=== PATIENT | male | born 1975 | race Caucasian/White ===

== ENCOUNTER 2024-02-27 02:32 | Inpatient (IN) | payer BC, MEDICAID ==
[2024-02-27] VITALS (8 sets, daily range): BP systolic 134–152; BP diastolic 73–88; PULSE 83–119; RESP 16–18; TEMP 97–100.4; O2SAT 94–98
[~2024-02-27] VITALS: Ht 167.6 cm; Wt 64.4 kg
[2024-02-27] MEDS ORDERED: ACETAMIN/CODEINE 120/12MG-5ML 5 ML UDC PO ONE (03:25)
[2024-02-27 03:35] LABS: BASOPHILS % (AUTO) 0.1 % (0.0-2.0); EOSINOPHILS # (AUTO) 0.1 K/uL (0-0.4); EOSINOPHILS % (AUTO) 0.3 % (0.0-4.0); HEMATOCRIT 37.9 % (36-52); HEMOGLOBIN 13.1 g/dL (12.0-18.0); LYMPHOCYTES # (AUTO) 1.6 K/uL (2.0-11.5); LYMPHOCYTES % (AUTO) 8.4 % (20.5-51.1); MEAN CORPUSCULAR HEMOGLOBIN 27 pg (27-31); MEAN CORPUSCULAR HGB CONC 35 g/dL (33-37); MEAN CORPUSCULAR VOLUME 78.5 fL (80-94); MONOCYTES # (AUTO) 0.9 K/uL (0.8-1.0); MONOCYTES % (AUTO) 4.9 % (1.7-9.3); NEUTROPHILS # (AUTO) 16.1 K/uL (1.8-7.7); NEUTROPHILS % (AUTO) 86.3 % (42.2-75.2); PLATELET COUNT (AUTO) 209 K/uL (140-450); RED BLOOD CELL COUNT(AUTO) 4.82 MIL/uL (4.20-6.10); RED CELL DISTRIBUTION WIDTH 13.2 % (11.6-13.7); WHITE BLOOD COUNT (AUTO) 18.6 K/uL (4.8-10.8)
[2024-02-27] MEDS ORDERED: levETIRAcetam 100 MG/ML VIAL IV ONE (03:40)
[2024-02-27 03:51] LABS: ANION GAP 11.9 (8-16); CALCIUM 8.9 mg/dL (8.5-10.1); CARBON DIOXIDE 29.6 mmol/L (21-32); POTASSIUM 3.5 mmol/L (3.5-5.1); TOTAL BILIRUBIN 0.9 mg/dL (0.0-1.0); TOTAL PROTEIN, SERUM 7.1 g/dL (6.4-8.2)
[2024-02-27] MEDS ORDERED: CRUSHER, PILL MC ONE (04:02)
[2024-02-27] MEDS: levETIRAcetam 1,000 MG in NACL 0.9% 100 ML IV ONE (04:03)
[2024-02-27] MEDS: ACETAMINOPHEN EXTRA STRENGTH 500 MG TAB GT ONE (04:16)
[2024-02-27] MEDS: NACL 0.9% 1,000 ML IV ONE ×2 (05:02→07:15)
[2024-02-27 07:00] LABS: BASOPHILS % (AUTO) 0.1 % (0.0-2.0); HEMATOCRIT 32.2 % (36-52); HEMOGLOBIN 11.2 g/dL (12.0-18.0); LYMPHOCYTES % (AUTO) 5.3 % (20.5-51.1); MEAN CORPUSCULAR HEMOGLOBIN 28 pg (27-31); MEAN CORPUSCULAR HGB CONC 35 g/dL (33-37); MEAN CORPUSCULAR VOLUME 78.9 fL (80-94); MONOCYTES # (AUTO) 1.2 K/uL (0.8-1.0); MONOCYTES % (AUTO) 6.3 % (1.7-9.3); NEUTROPHILS # (AUTO) 16.7 K/uL (1.8-7.7); NEUTROPHILS % (AUTO) 88.3 % (42.2-75.2); PLATELET COUNT (AUTO) 183 K/uL (140-450); RED BLOOD CELL COUNT(AUTO) 4.07 MIL/uL (4.20-6.10); WHITE BLOOD COUNT (AUTO) 18.9 K/uL (4.8-10.8)
[2024-02-27] MEDS ORDERED: cefTRIAXone 1,000 MG VIAL ONE (08:19)
[2024-02-27 08:32] LABS: APPEARANCE,URINE CLEAR (CLEAR); BILIRUBIN,URINE NEGATIVE (NEGATIVE); BLOOD, URINE TRACE-I (NEGATIVE); COLOR,URINE YELLOW (YELLOW); LEUKOCYTE ESTERASE ,URINE NEGATIVE (NEGATIVE); NITRITE, URINE NEGATIVE (NEGATIVE); PROTEIN,URINE 3+ (NEGATIVE); UGLUCOSE NEGATIVE (NEGATIVE); UROBILINOGEN,URINE 0.2 EU/dL (0.2 - 1)
[2024-02-27 08:45] LABS: BACTERIA,URINE FEW /HPF (None Seen); SQUAMOUS EPITHELIAL CELL,UR 0-3 (FEW) /LPF (0-3 (FEW)); YEAST,URINE Many /HPF (None Seen)
[2024-02-27] MEDS ORDERED: guaiFENesin DM 200/20 MG-10 ML 10 ML UDC PO PRN (10:05)
[2024-02-27] MEDS ORDERED: HYDROcodone/APAP 7.5/325 MG 1 TAB PO PRN (10:05)
[2024-02-27] MEDS ORDERED: ONDANSETRON 4 MG/2 ML VIAL IM/IVP PRN (10:05)
[2024-02-27] MEDS ORDERED: ZOLPIDEM 5 MG TAB PO PRN (10:05)
[2024-02-27] MEDS ORDERED: DOCUSATE SODIUM 100 MG GELCAP PO PRN (10:05)
[2024-02-27] MEDS ORDERED: LACO50TA PO (10:57)
[2024-02-27] MEDS ORDERED: AMLO10TA88 PO (10:57)
[2024-02-27] MEDS ORDERED: INSU100S22 SUBQ (10:57)
[2024-02-27] MEDS ORDERED: CYCL5TAB2 PO (10:57)
[2024-02-27] MEDS ORDERED: FLUO-402 PO (10:57)
[2024-02-27] MEDS ORDERED: CIPR500T9 PO (10:57)
[2024-02-27] MEDS ORDERED: LISI40TA8 PO (10:57)
[2024-02-27] MEDS ORDERED: QUET25TA46 PO (10:57)
[2024-02-27] MEDS ORDERED: GABA-636 PO (10:57)
[2024-02-27] MEDS ORDERED: INSU100S54 SUBQ (10:57)
[2024-02-27] MEDS ORDERED: [UNRECOGNIZED DRUG - CODE] PO (10:57)
[2024-02-27] MEDS ORDERED: LEVE750T8 PO (10:57)
[2024-02-27 12:50] LABS: LACTIC ACID 2.4 mmol/L (0.4-2.0)
[2024-02-27] MEDS ORDERED: CYCLOBENZAPRINE 10 MG TAB PO SCH (13:25)
[2024-02-27] MEDS ORDERED: DEXTROSE 50% 50 ML SYR IVP PRN (13:30)
[2024-02-27] MEDS ORDERED: NACL 0.9% 500 ML IV SCH (13:30)
[2024-02-27] MEDS: NACL 0.9% 1,000 ML IV SCH (15:05)
[2024-02-27] MEDS: FLUCONAZOLE 100 MG/NS PREMIX 50 ML IV SCH (15:58)
[2024-02-27] MEDS: PIPERACILLIN/TAZOBACTAM 3.375 GM in DEXTROSE 5% 50 ML IV SCH (15:58)
[2024-02-27] MEDS: BLOOD GLUCOSE MONITORING 1 DEV DEV FS SCH (16:20)
[2024-02-27 17:48] LABS: LACTIC ACID 1.4 mmol/L (0.4-2.0)
[2024-02-27] MEDS: levETIRAcetam 500 MG TAB PO SCH (20:09)
[2024-02-27] MEDS: QUEtiapine FUMARATE 25 MG TAB PO SCH (20:11)
[2024-02-27] MEDS: PIPERACILLIN/TAZOBACTAM 3.375 GM VIAL IV ONE ×2 (20:21)
[2024-02-28] VITALS (8 sets, daily range): BP systolic 131–158; BP diastolic 67–87; PULSE 97–117; RESP 18; TEMP 96.6–99.5; O2SAT 93–98
[2024-02-28] MEDS: PIPERACILLIN/TAZOBACTAM 3.375 GM VIAL IV ONE (04:32)
[2024-02-28 06:44] LABS: BASOPHILS % (AUTO) 0.2 % (0.0-2.0); EOSINOPHILS % (AUTO) 0.3 % (0.0-4.0); HEMATOCRIT 34.2 % (36-52); HEMOGLOBIN 11.8 g/dL (12.0-18.0); LYMPHOCYTES # (AUTO) 1.3 K/uL (2.0-11.5); LYMPHOCYTES % (AUTO) 8.8 % (20.5-51.1); MEAN CORPUSCULAR HEMOGLOBIN 27 pg (27-31); MEAN CORPUSCULAR HGB CONC 34 g/dL (33-37); MEAN CORPUSCULAR VOLUME 78.1 fL (80-94); MONOCYTES # (AUTO) 0.9 K/uL (0.8-1.0); MONOCYTES % (AUTO) 6.3 % (1.7-9.3); NEUTROPHILS # (AUTO) 12.6 K/uL (1.8-7.7); NEUTROPHILS % (AUTO) 84.4 % (42.2-75.2); PLATELET COUNT (AUTO) 180 K/uL (140-450); RED BLOOD CELL COUNT(AUTO) 4.39 MIL/uL (4.20-6.10); RED CELL DISTRIBUTION WIDTH 13.1 % (11.6-13.7)
[2024-02-28 07:17] LABS: ALBUMIN 2.6 g/dL (3.4-5.0); CALCIUM 8.8 mg/dL (8.5-10.1); CARBON DIOXIDE 26.4 mmol/L (21-32); CREATININE 0.8 mg/dL (0.6-1.3); POTASSIUM 3.4 mmol/L (3.5-5.1); TOTAL BILIRUBIN 1.1 mg/dL (0.0-1.0); TOTAL PROTEIN, SERUM 6.7 g/dL (6.4-8.2)
[2024-02-28] MEDS: ATORVASTATIN 20 MG TAB PO SCH (08:43)
[2024-02-28] MEDS: GABAPENTIN 300 MG CAP PO SCH (08:44)
[2024-02-28] MEDS: amLODIPine 5 MG TAB PO SCH (08:45)
[2024-02-28] MEDS: PANTOPRAZOLE 40 MG TABEC PO SCH (08:46)
[2024-02-28] MEDS: lisinopriL 20 MG TAB PO SCH (08:46)
[2024-02-28] MEDS: AMANTADINE 100 MG CAP PO SCH (08:46)
[2024-02-28] MEDS: FLUoxetine 20 MG CAP PO SCH (08:50)
[2024-02-28] MEDS ORDERED: QUEtiapine FUMARATE 25 MG TAB PO SCH (09:00)
[2024-02-28] MEDS: POTASSIUM CHLORIDE 10 MEQ TABER PO PRN (12:44)
[2024-02-28] MEDS: ACETAMINOPHEN 325 MG TAB PO PRN (20:23)
[2024-02-29] VITALS (12 sets, daily range): BP systolic 101–149; BP diastolic 48–75; PULSE 57–84; RESP 18–19; TEMP 96.7–98.6; O2SAT 93–100
[2024-02-29 06:47] LABS: BASOPHILS % (AUTO) 0.4 % (0.0-2.0); EOSINOPHILS # (AUTO) 0.1 K/uL (0-0.4); EOSINOPHILS % (AUTO) 1.2 % (0.0-4.0); HEMATOCRIT 31.3 % (36-52); HEMOGLOBIN 10.7 g/dL (12.0-18.0); LYMPHOCYTES # (AUTO) 2.3 K/uL (2.0-11.5); LYMPHOCYTES % (AUTO) 19.6 % (20.5-51.1); MEAN CORPUSCULAR HEMOGLOBIN 27 pg (27-31); MEAN CORPUSCULAR HGB CONC 34 g/dL (33-37); MEAN CORPUSCULAR VOLUME 78.5 fL (80-94); MONOCYTES # (AUTO) 1.3 K/uL (0.8-1.0); NEUTROPHILS # (AUTO) 7.8 K/uL (1.8-7.7); NEUTROPHILS % (AUTO) 67.8 % (42.2-75.2); PLATELET COUNT (AUTO) 182 K/uL (140-450); RED BLOOD CELL COUNT(AUTO) 3.99 MIL/uL (4.20-6.10); RED CELL DISTRIBUTION WIDTH 13.4 % (11.6-13.7); WHITE BLOOD COUNT (AUTO) 11.6 K/uL (4.8-10.8)
[2024-02-29 07:26] LABS: ALBUMIN 2.2 g/dL (3.4-5.0); ANION GAP 10.6 (8-16); CARBON DIOXIDE 29.1 mmol/L (21-32); CREATININE 1.1 mg/dL (0.6-1.3); POTASSIUM 3.7 mmol/L (3.5-5.1); TOTAL BILIRUBIN 1.2 mg/dL (0.0-1.0); TOTAL PROTEIN, SERUM 6.6 g/dL (6.4-8.2)
[2024-02-29] MEDS: INSULIN LISPRO SLIDING SCALE 100 UNITS/ML VIAL SUBQ PRN (11:20)
[2024-02-29] MEDS: MUPIROCIN CA NASAL 2% 1GM TUBE NS SCH (12:29)
[2024-02-29] MEDS: CHLORHEXADINE GLUC 2% CLOTH TP SCH (12:30)
[2024-03-01] VITALS: PULSE 76
[2024-03-01 04:00] VITALS: BP 137/78; PULSE 73; PULSE 77; RESP 18; TEMP 98; O2SAT 97
[2024-03-01 06:40] LABS: BASOPHILS % (AUTO) 0.5 % (0.0-2.0); EOSINOPHILS # (AUTO) 0.1 K/uL (0-0.4); EOSINOPHILS % (AUTO) 1.6 % (0.0-4.0); HEMATOCRIT 30.2 % (36-52); HEMOGLOBIN 10.7 g/dL (12.0-18.0); LYMPHOCYTES # (AUTO) 1.8 K/uL (2.0-11.5); LYMPHOCYTES % (AUTO) 21.5 % (20.5-51.1); MEAN CORPUSCULAR HEMOGLOBIN 27 pg (27-31); MEAN CORPUSCULAR HGB CONC 35 g/dL (33-37); MEAN CORPUSCULAR VOLUME 77.5 fL (80-94); MONOCYTES # (AUTO) 0.8 K/uL (0.8-1.0); MONOCYTES % (AUTO) 8.8 % (1.7-9.3); NEUTROPHILS # (AUTO) 5.8 K/uL (1.8-7.7); NEUTROPHILS % (AUTO) 67.6 % (42.2-75.2); PLATELET COUNT (AUTO) 188 K/uL (140-450); RED CELL DISTRIBUTION WIDTH 12.9 % (11.6-13.7); WHITE BLOOD COUNT (AUTO) 8.6 K/uL (4.8-10.8)
[2024-03-01 07:08] LABS: ANION GAP 14.1 (8-16); CALCIUM 8.7 mg/dL (8.5-10.1); CARBON DIOXIDE 26.5 mmol/L (21-32); POTASSIUM 3.6 mmol/L (3.5-5.1); TOTAL BILIRUBIN 0.6 mg/dL (0.0-1.0); TOTAL PROTEIN, SERUM 6.3 g/dL (6.4-8.2)
[2024-03-01 08:00] VITALS: BP 135/81; PULSE 80; PULSE 93; RESP 18; TEMP 97.1; O2SAT 98
[2024-03-01 16:00] VITALS: BP 135/81; PULSE 93; RESP 18; TEMP 97.1; O2SAT 98
[2024-03-01 20:00] VITALS: BP 128/76; PULSE 77; RESP 18; TEMP 97.7; O2SAT 97
[2024-03-01 20:11] VITALS: PULSE 77; RESP 18; O2SAT 97
[2024-03-02 04:00] VITALS: BP 123/67; PULSE 83; RESP 18; TEMP 97; O2SAT 93
[2024-03-02 07:07] LABS: BASOPHILS % (AUTO) 0.7 % (0.0-2.0); EOSINOPHILS # (AUTO) 0.2 K/uL (0-0.4); EOSINOPHILS % (AUTO) 2.3 % (0.0-4.0); HEMOGLOBIN 10.6 g/dL (12.0-18.0); LYMPHOCYTES # (AUTO) 2.1 K/uL (2.0-11.5); LYMPHOCYTES % (AUTO) 31.3 % (20.5-51.1); MEAN CORPUSCULAR HEMOGLOBIN 27 pg (27-31); MEAN CORPUSCULAR HGB CONC 35 g/dL (33-37); MEAN CORPUSCULAR VOLUME 76.9 fL (80-94); MONOCYTES # (AUTO) 0.5 K/uL (0.8-1.0); MONOCYTES % (AUTO) 8.1 % (1.7-9.3); NEUTROPHILS # (AUTO) 3.9 K/uL (1.8-7.7); NEUTROPHILS % (AUTO) 57.6 % (42.2-75.2); PLATELET COUNT (AUTO) 217 K/uL (140-450); RED BLOOD CELL COUNT(AUTO) 3.91 MIL/uL (4.20-6.10); RED CELL DISTRIBUTION WIDTH 12.9 % (11.6-13.7); WHITE BLOOD COUNT (AUTO) 6.7 K/uL (4.8-10.8)
[2024-03-02 07:40] LABS: ANION GAP 11.6 (8-16); CALCIUM 8.6 mg/dL (8.5-10.1); CARBON DIOXIDE 27.9 mmol/L (21-32); CREATININE 0.9 mg/dL (0.6-1.3); POTASSIUM 3.5 mmol/L (3.5-5.1); TOTAL BILIRUBIN 0.4 mg/dL (0.0-1.0); TOTAL PROTEIN, SERUM 6.6 g/dL (6.4-8.2)
[2024-03-02 08:00] VITALS: PULSE 83; RESP 18; O2SAT 100
[2024-03-02 08:04] VITALS: TEMP 97.8
[2024-03-02 08:35] LABS: ALBUMIN 2.2 g/dL (3.4-5.0)
[2024-03-02 08:58] VITALS: BP 125/62; PULSE 83; RESP 18; TEMP 96.9; O2SAT 100
[2024-03-02] MEDS ORDERED: AMOX-999 PO (10:00)
[2024-03-02] MEDS ORDERED: FLUC200T PO (10:08)
[2024-03-02 10:14] VITALS: BP 125/62; PULSE 83; RESP 18; TEMP 96.9
== END 2024-03-02 11:45 | disposition home or self-care (01) | DRG 871 ==
LOC: MED 02:32 → MTU 10:08
PROVIDERS: ADMIT Student in an Organized Health Care Education/Training Program; ATTEND Student in an Organized Health Care Education/Training Program
DX: A41.9 Sepsis, unspecified organism (principal); J69.0 Pneumonitis due to inhalation of food and vomit; I69.351 Hemiplegia and hemiparesis following cerebral infarction affecting right dominant side; E44.0 Moderate protein-calorie malnutrition; N39.0 Urinary tract infection, site not specified; R65.20 Severe sepsis without septic shock; G40.909 Epilepsy, unspecified, not intractable, without status epilepticus; E11.9 Type 2 diabetes mellitus without complications; F41.9 Anxiety disorder, unspecified; F32.A Depression, unspecified; E78.5 Hyperlipidemia, unspecified; I10 Essential (primary) hypertension; Z68.22 Body mass index [BMI] 22.0-22.9, adult; Z79.4 Long term (current) use of insulin; Z79.899 Other long term (current) drug therapy
CPT/HCPCS: 36415; 70450; 71045; 78580; 80053; 81001; 82948; 83605; 83880; 84484; 85025; 85379; 87040; 87081; 87086; 93005; 96361; 96365; 96367; 97110; 97163-GP; 97530; 99285; A9540; J0696; J1450; J1815; J1953; J2543; J7060; Q0092

== ENCOUNTER 2024-04-01 00:05 | Inpatient (IN) | payer MEDICAID, BC ==
[2024-04-01] VITALS (8 sets, daily range): BP systolic 103–142; BP diastolic 66–88; PULSE 67–85; RESP 14–18; TEMP 97.1–98; O2SAT 98–100
[~2024-04-01] VITALS: Ht 167.6 cm; Wt 81.6 kg
[~2024-04-01 00:05] MED LIST: AMLO10TA88 PO; AMOX-999 PO; CIPR500T9 PO; CYCL5TAB2 PO; FLUC200T PO; FLUO-402 PO; GABA-636 PO; INSU100S22 SUBQ; INSU100S54 SUBQ; LACO50TA PO; LEVE750T8 PO; LISI40TA8 PO; QUET25TA46 PO; [UNRECOGNIZED DRUG - CODE] PO
[2024-04-01 01:31] LABS: BASOPHILS # (AUTO) 0.1 K/uL (0.00-0.22); BASOPHILS % (AUTO) 0.8 % (0.0-2.0); EOSINOPHILS # (AUTO) 0.2 K/uL (0-0.4); EOSINOPHILS % (AUTO) 1.9 % (0.0-4.0); HEMATOCRIT 30.1 % (36-52); HEMOGLOBIN 10.3 g/dL (12.0-18.0); LYMPHOCYTES # (AUTO) 3.1 K/uL (2.0-11.5); LYMPHOCYTES % (AUTO) 26.8 % (20.5-51.1); MEAN CORPUSCULAR HEMOGLOBIN 27 pg (27-31); MEAN CORPUSCULAR HGB CONC 34 g/dL (33-37); MONOCYTES # (AUTO) 0.8 K/uL (0.8-1.0); NEUTROPHILS # (AUTO) 7.3 K/uL (1.8-7.7); NEUTROPHILS % (AUTO) 63.5 % (42.2-75.2); PLATELET COUNT (AUTO) 262 K/uL (140-450); RED BLOOD CELL COUNT(AUTO) 3.76 MIL/uL (4.20-6.10); RED CELL DISTRIBUTION WIDTH 13.6 % (11.6-13.7); WHITE BLOOD COUNT (AUTO) 11.4 K/uL (4.8-10.8)
[2024-04-01 01:42] LABS: APPEARANCE,URINE CLEAR (CLEAR); BILIRUBIN,URINE NEGATIVE (NEGATIVE); BLOOD, URINE TRACE-I (NEGATIVE); COLOR,URINE YELLOW (YELLOW); LEUKOCYTE ESTERASE ,URINE 1+ (NEGATIVE); NITRITE, URINE NEGATIVE (NEGATIVE); PROTEIN,URINE 2+ (NEGATIVE); UGLUCOSE NEGATIVE (NEGATIVE); UROBILINOGEN,URINE 0.2 EU/dL (0.2 - 1)
[2024-04-01 01:54] LABS: BACTERIA,URINE >30 (MANY) /HPF (None Seen); MUCUS,URINE 1+ /LPF (None Seen); SQUAMOUS EPITHELIAL CELL,UR 0-3 (FEW) /LPF (0-3 (FEW))
[2024-04-01 01:55] LABS: AMPHETAMINE, URINE NEGATIVE ng/ml (NEG <=1000); BARBITURATE, URINE NEGATIVE ng/ml (NEG <=200); BENZODIAZEPINE, URINE NEGATIVE ng/mL (NEG <=200); CANNABINOID, URINE NEGATIVE ng/mL (NEG <=50); COCAINE, URINE NEGATIVE ng/mL (NEG <=300); OPIATE, URINE NEGATIVE ng/mL (NEG <=2000); PHENCYCLIDINE SCREEN,URINE NEGATIVE ng/mL (NEG <=25)
[2024-04-01 01:56] LABS: ANION GAP 11.4 (8-16); CALCIUM 8.8 mg/dL (8.5-10.1); CARBON DIOXIDE 26.3 mmol/L (21-32); CREATININE 1.1 mg/dL (0.6-1.3); POTASSIUM 3.7 mmol/L (3.5-5.1)
[2024-04-01 01:59] LABS: ALANINE AMINOTRANSFERASE 24 U/L (12-78); ALBUMIN 2.7 g/dL (3.4-5.0); ALKALINE PHOSPHATASE 90 U/L (50-136); ASPARTATE AMINOTRANSFERASE 18 U/L (15-37); BILIRUBIN,DIRECT 0.2 mg/dL (0.0-0.3); CREATINE KINASE, TOTAL 34 U/L (39-308); THYROID STIMULATING HORMONE 1.76 uIU/mL (0.34-3.74); TOTAL BILIRUBIN 0.8 mg/dL (0.0-1.0); TOTAL PROTEIN, SERUM 6.9 g/dL (6.4-8.2)
[2024-04-01 02:00] LABS: ALCOHOL, BLOOD < 3 mg/dL (<10)
[2024-04-01] MEDS ORDERED: OLAN2.5T1 GT (02:04)
[2024-04-01 02:06] LABS: FLU A ANTIGEN negative (NEGATIVE); FLU B ANTIGEN NEGATIVE (NEGATIVE)
[2024-04-01] MEDS ORDERED: cefTRIAXone 1,000 MG VIAL ONE (02:08)
[2024-04-01] MEDS ORDERED: ONDANSETRON 4 MG/2 ML VIAL IVP PRN (05:05)
[2024-04-01] MEDS ORDERED: MEDICATION REC. PHARMACY CONS. 1 EA MISC MC PRN (05:15)
[2024-04-01] MEDS: NACL 0.9% 1,000 ML IV SCH (05:57)
[2024-04-01] MEDS ORDERED: DEXTROSE 50% 50 ML SYR IVP PRN (06:55)
[2024-04-01] MEDS: BLOOD GLUCOSE MONITORING 1 DEV DEV FS SCH (07:49)
[2024-04-01] MEDS: amLODIPine 5 MG TAB PO SCH (09:00)
[2024-04-01] MEDS: lisinopriL 20 MG TAB PO SCH (09:00)
[2024-04-01] MEDS: QUEtiapine FUMARATE 25 MG TAB PO SCH (09:35)
[2024-04-01] MEDS: levETIRAcetam 500 MG TAB PO SCH (09:35)
[2024-04-01] MEDS: FLUoxetine 20 MG CAP PO SCH (09:35)
[2024-04-01] MEDS: OLANZapine 2.5 MG TAB GT SCH (09:35)
[2024-04-01] MEDS: GABAPENTIN 100 MG CAP PO SCH (09:35)
[2024-04-01] MEDS: AMANTADINE 100 MG CAP PO SCH (09:41)
[2024-04-01] MEDS ORDERED: LACO50TA PO (11:41)
[2024-04-01] MEDS ORDERED: POTASSIUM CHLORIDE 40 MEQ, LIDOCAINE 1% 25 MG in NACL 0.9% 250 ML IV PRN (12:45)
[2024-04-01] MEDS ORDERED: MAG SULF 2000 MG/WATER PREMIX 50 ML IV PRN (12:45)
[2024-04-01] MEDS: LACOSAMIDE 10 MG/1 ML PO SCH (12:47)
[2024-04-01] MEDS ORDERED: VANCOMYCIN PER PHARMACY MC PRN (23:50)
[2024-04-02] MEDS: VANCOMYCIN 1.25GM PREMIX 250 ML IV SCH (01:30)
[2024-04-02] MEDS: VANCOMYCIN 1,000 MG VIAL ONE (01:44)
[2024-04-02] MEDS: VANCOMYCIN 500 MG VIAL ONE (01:45)
[2024-04-02 04:00] VITALS: BP 142/86; PULSE 83; RESP 18; TEMP 97.2; O2SAT 92
[2024-04-02] MEDS: PIPERACILLIN/TAZOBACTAM 3.375 GM VIAL IV ONE (04:20)
[2024-04-02] MEDS: PIPERACILLIN/TAZOBACTAM 3.375 GM in DEXTROSE 5% 50 ML IV SCH (04:32)
[2024-04-02 05:19] LABS: BASOPHILS # (AUTO) 0.1 K/uL (0.00-0.22); BASOPHILS % (AUTO) 0.9 % (0.0-2.0); EOSINOPHILS # (AUTO) 0.3 K/uL (0-0.4); EOSINOPHILS % (AUTO) 3.4 % (0.0-4.0); HEMATOCRIT 32.4 % (36-52); HEMOGLOBIN 11.2 g/dL (12.0-18.0); LYMPHOCYTES # (AUTO) 1.9 K/uL (2.0-11.5); LYMPHOCYTES % (AUTO) 25.5 % (20.5-51.1); MEAN CORPUSCULAR HEMOGLOBIN 27 pg (27-31); MEAN CORPUSCULAR HGB CONC 35 g/dL (33-37); MEAN CORPUSCULAR VOLUME 78.5 fL (80-94); MONOCYTES # (AUTO) 0.5 K/uL (0.8-1.0); MONOCYTES % (AUTO) 6.5 % (1.7-9.3); NEUTROPHILS # (AUTO) 4.8 K/uL (1.8-7.7); NEUTROPHILS % (AUTO) 63.7 % (42.2-75.2); PLATELET COUNT (AUTO) 218 K/uL (140-450); RED BLOOD CELL COUNT(AUTO) 4.13 MIL/uL (4.20-6.10); RED CELL DISTRIBUTION WIDTH 13.6 % (11.6-13.7); WHITE BLOOD COUNT (AUTO) 7.5 K/uL (4.8-10.8)
[2024-04-02 05:23] LABS: ANION GAP 9.7 (8-16); CALCIUM 8.8 mg/dL (8.5-10.1); CARBON DIOXIDE 28.8 mmol/L (21-32); CREATININE 0.7 mg/dL (0.6-1.3); POTASSIUM 3.5 mmol/L (3.5-5.1)
[2024-04-02 05:40] LABS: PHOSPHORUS 3.2 mg/dL (2.5-4.9)
[2024-04-02 08:00] VITALS: BP 127/82; PULSE 81; RESP 18; RESP 19; TEMP 97.3; O2SAT 98
[2024-04-02] MEDS ORDERED: VANCOMYCIN PER PHARMACY MC PRN (08:45)
[2024-04-02] MEDS: VANCOMYCIN 1,000 MG in DEXTROSE 5% 250 ML IV SCH (09:40)
[2024-04-02 16:00] VITALS: BP 145/84; PULSE 78; RESP 18; TEMP 97.2; O2SAT 100
[2024-04-02 20:00] VITALS: BP 125/80; PULSE 78; PULSE 81; RESP 18; RESP 20; TEMP 97.1; O2SAT 97; O2SAT 98
[2024-04-03 04:00] VITALS: BP 144/78; PULSE 75; RESP 20; TEMP 96.5; O2SAT 98
[2024-04-03 08:00] VITALS: BP 151/84; PULSE 74; RESP 18; TEMP 97.9; O2SAT 99
[2024-04-03 08:54] LABS: BASOPHILS # (AUTO) 0.1 K/uL (0.00-0.22); BASOPHILS % (AUTO) 0.8 % (0.0-2.0); EOSINOPHILS # (AUTO) 0.2 K/uL (0-0.4); EOSINOPHILS % (AUTO) 3.1 % (0.0-4.0); HEMATOCRIT 32.3 % (36-52); HEMOGLOBIN 11.3 g/dL (12.0-18.0); LYMPHOCYTES # (AUTO) 1.8 K/uL (2.0-11.5); LYMPHOCYTES % (AUTO) 24.5 % (20.5-51.1); MEAN CORPUSCULAR HEMOGLOBIN 27 pg (27-31); MEAN CORPUSCULAR HGB CONC 35 g/dL (33-37); MONOCYTES # (AUTO) 0.5 K/uL (0.8-1.0); MONOCYTES % (AUTO) 7.4 % (1.7-9.3); NEUTROPHILS # (AUTO) 4.7 K/uL (1.8-7.7); NEUTROPHILS % (AUTO) 64.2 % (42.2-75.2); PLATELET COUNT (AUTO) 217 K/uL (140-450); RED BLOOD CELL COUNT(AUTO) 4.14 MIL/uL (4.20-6.10); RED CELL DISTRIBUTION WIDTH 13.5 % (11.6-13.7); WHITE BLOOD COUNT (AUTO) 7.3 K/uL (4.8-10.8)
[2024-04-03 09:00] LABS: ANION GAP 9.4 (8-16); CALCIUM 8.8 mg/dL (8.5-10.1); CARBON DIOXIDE 29.1 mmol/L (21-32); CREATININE 0.7 mg/dL (0.6-1.3); POTASSIUM 3.5 mmol/L (3.5-5.1)
[2024-04-03 12:00] VITALS: BP 151/84; PULSE 74; RESP 18; TEMP 97.9; O2SAT 99
[2024-04-03 16:00] VITALS: BP 128/70; PULSE 75; RESP 20; TEMP 97.5; O2SAT 98
[2024-04-03 20:00] VITALS: BP 131/78; PULSE 72; PULSE 78; RESP 18; TEMP 97.6; O2SAT 97; O2SAT 99
[2024-04-03] MEDS: VANCOMYCIN 1.25GM PREMIX 250 ML IV SCH (20:58)
[2024-04-03 23:28] LABS: APPEARANCE,URINE CLEAR (CLEAR); BILIRUBIN,URINE NEGATIVE (NEGATIVE); BLOOD, URINE 2+ (NEGATIVE); COLOR,URINE YELLOW (YELLOW); LEUKOCYTE ESTERASE ,URINE NEGATIVE (NEGATIVE); NITRITE, URINE NEGATIVE (NEGATIVE); PH,URINE 6.5 (5.0-9.0); PROTEIN,URINE 2+ (NEGATIVE); UGLUCOSE NEGATIVE (NEGATIVE); UROBILINOGEN,URINE 0.2 EU/dL (0.2 - 1)
[2024-04-03 23:37] LABS: RBC,URINE 20-50 /HPF (0-5); WBC,URINE 0-5 /HPF (0-5)
[2024-04-03 23:38] LABS: BACTERIA,URINE 10-30 (MOD) /HPF (None Seen); MUCUS,URINE 1+ /LPF (None Seen); SQUAMOUS EPITHELIAL CELL,UR 0-3 (FEW) /LPF (0-3 (FEW))
[2024-04-04 04:00] VITALS: BP 139/84; PULSE 78; RESP 18; TEMP 97.2; O2SAT 98
[2024-04-04 05:29] LABS: BASOPHILS # (AUTO) 0.1 K/uL (0.00-0.22); BASOPHILS % (AUTO) 0.7 % (0.0-2.0); EOSINOPHILS # (AUTO) 0.2 K/uL (0-0.4); EOSINOPHILS % (AUTO) 2.1 % (0.0-4.0); HEMATOCRIT 31.5 % (36-52); HEMOGLOBIN 11.2 g/dL (12.0-18.0); LYMPHOCYTES # (AUTO) 1.7 K/uL (2.0-11.5); LYMPHOCYTES % (AUTO) 18.7 % (20.5-51.1); MEAN CORPUSCULAR HEMOGLOBIN 28 pg (27-31); MEAN CORPUSCULAR HGB CONC 35 g/dL (33-37); MEAN CORPUSCULAR VOLUME 77.9 fL (80-94); MONOCYTES # (AUTO) 0.5 K/uL (0.8-1.0); MONOCYTES % (AUTO) 5.4 % (1.7-9.3); NEUTROPHILS # (AUTO) 6.6 K/uL (1.8-7.7); NEUTROPHILS % (AUTO) 73.1 % (42.2-75.2); PLATELET COUNT (AUTO) 218 K/uL (140-450); RED BLOOD CELL COUNT(AUTO) 4.04 MIL/uL (4.20-6.10); RED CELL DISTRIBUTION WIDTH 13.5 % (11.6-13.7); WHITE BLOOD COUNT (AUTO) 9.1 K/uL (4.8-10.8)
[2024-04-04 05:49] LABS: ANION GAP 10.6 (8-16); CALCIUM 8.9 mg/dL (8.5-10.1); CREATININE 0.7 mg/dL (0.6-1.3); POTASSIUM 3.6 mmol/L (3.5-5.1)
[2024-04-04 08:00] VITALS: BP 130/78; PULSE 84; RESP 18; TEMP 97.8; O2SAT 99
[2024-04-04 20:00] VITALS: BP 139/80; PULSE 75; RESP 18; TEMP 97.8; O2SAT 98
[2024-04-05 04:00] VITALS: BP 131/74; PULSE 74; RESP 18; TEMP 98.3; O2SAT 97
[2024-04-05 08:00] VITALS: PULSE 75; RESP 18; TEMP 97.8; O2SAT 99
[2024-04-05 08:37] LABS: ANION GAP 10.2 (8-16); CALCIUM 8.8 mg/dL (8.5-10.1); CARBON DIOXIDE 29.5 mmol/L (21-32); CREATININE 0.7 mg/dL (0.6-1.3); POTASSIUM 3.7 mmol/L (3.5-5.1)
[2024-04-05 11:07] VITALS: PULSE 78; RESP 16; O2SAT 98
[2024-04-05 12:00] VITALS: BP 154/84; PULSE 75; RESP 18; TEMP 97.8; O2SAT 99
[2024-04-05 20:00] VITALS: BP 134/75; PULSE 69; RESP 18; TEMP 97.4; O2SAT 97
[2024-04-06 04:00] VITALS: BP 148/70; PULSE 71; RESP 18; TEMP 97.6; O2SAT 99
[2024-04-06 05:34] LABS: BASOPHILS # (AUTO) 0.1 K/uL (0.00-0.22); BASOPHILS % (AUTO) 0.9 % (0.0-2.0); EOSINOPHILS # (AUTO) 0.2 K/uL (0-0.4); EOSINOPHILS % (AUTO) 2.8 % (0.0-4.0); HEMATOCRIT 31.1 % (36-52); HEMOGLOBIN 10.9 g/dL (12.0-18.0); LYMPHOCYTES # (AUTO) 1.8 K/uL (2.0-11.5); LYMPHOCYTES % (AUTO) 24.4 % (20.5-51.1); MEAN CORPUSCULAR HEMOGLOBIN 27 pg (27-31); MEAN CORPUSCULAR HGB CONC 35 g/dL (33-37); MEAN CORPUSCULAR VOLUME 77.8 fL (80-94); MONOCYTES # (AUTO) 0.5 K/uL (0.8-1.0); MONOCYTES % (AUTO) 6.5 % (1.7-9.3); NEUTROPHILS % (AUTO) 65.4 % (42.2-75.2); PLATELET COUNT (AUTO) 196 K/uL (140-450); RED CELL DISTRIBUTION WIDTH 13.7 % (11.6-13.7); WHITE BLOOD COUNT (AUTO) 7.6 K/uL (4.8-10.8)
[2024-04-06 05:51] LABS: CALCIUM 9.1 mg/dL (8.5-10.1); CARBON DIOXIDE 30.6 mmol/L (21-32); CREATININE 0.7 mg/dL (0.6-1.3); POTASSIUM 3.6 mmol/L (3.5-5.1)
[2024-04-06 08:00] VITALS: PULSE 85; RESP 18; TEMP 98.5; O2SAT 96
[2024-04-06 12:00] VITALS: BP 133/70; PULSE 75; RESP 18; TEMP 98.6; O2SAT 98
[2024-04-06 20:00] VITALS: BP 129/79; PULSE 74; RESP 18; TEMP 97.6; TEMP 98.5; O2SAT 96; O2SAT 99
[2024-04-07 04:00] VITALS: BP 140/81; PULSE 62; RESP 18; TEMP 97.5; O2SAT 98
[2024-04-07 08:00] VITALS: BP_SYST 143; BP_SYST 148; BP_DIAS 80; BP_DIAS 85; PULSE 74; PULSE 80; RESP 18; TEMP 97.4; O2SAT 96; O2SAT 98
[2024-04-07] MEDS ORDERED: VANCOMYCIN PER PHARMACY MC PRN (13:40)
[2024-04-07 16:00] VITALS: BP 148/80; PULSE 72; RESP 18; TEMP 97.7; O2SAT 98
[2024-04-07 20:00] VITALS: BP 139/79; PULSE 74; RESP 18; TEMP 97.3; O2SAT 97
[2024-04-07 21:00] VITALS: PULSE 74; RESP 18; O2SAT 97
[2024-04-08 08:00] VITALS: BP 147/82; PULSE 74; PULSE 78; RESP 16; RESP 18; TEMP 97.4; O2SAT 97; O2SAT 98
[2024-04-08 08:52] LABS: BASOPHILS # (AUTO) 0.1 K/uL (0.00-0.22); BASOPHILS % (AUTO) 0.7 % (0.0-2.0); EOSINOPHILS # (AUTO) 0.1 K/uL (0-0.4); EOSINOPHILS % (AUTO) 1.9 % (0.0-4.0); HEMATOCRIT 32.1 % (36-52); HEMOGLOBIN 11.1 g/dL (12.0-18.0); LYMPHOCYTES # (AUTO) 1.8 K/uL (2.0-11.5); LYMPHOCYTES % (AUTO) 22.8 % (20.5-51.1); MEAN CORPUSCULAR HEMOGLOBIN 27 pg (27-31); MEAN CORPUSCULAR HGB CONC 35 g/dL (33-37); MEAN CORPUSCULAR VOLUME 78.2 fL (80-94); MONOCYTES # (AUTO) 0.6 K/uL (0.8-1.0); MONOCYTES % (AUTO) 7.1 % (1.7-9.3); NEUTROPHILS # (AUTO) 5.2 K/uL (1.8-7.7); NEUTROPHILS % (AUTO) 67.5 % (42.2-75.2); PLATELET COUNT (AUTO) 191 K/uL (140-450); RED BLOOD CELL COUNT(AUTO) 4.11 MIL/uL (4.20-6.10); RED CELL DISTRIBUTION WIDTH 13.3 % (11.6-13.7); WHITE BLOOD COUNT (AUTO) 7.7 K/uL (4.8-10.8)
[2024-04-08 09:22] LABS: ANION GAP 11.2 (8-16); CALCIUM 8.9 mg/dL (8.5-10.1); CARBON DIOXIDE 28.4 mmol/L (21-32); CREATININE 0.6 mg/dL (0.6-1.3); POTASSIUM 3.6 mmol/L (3.5-5.1)
[2024-04-08 16:00] VITALS: BP 139/78; PULSE 68; RESP 16; TEMP 97.5; O2SAT 100
[2024-04-08 21:00] VITALS: PULSE 74; RESP 18; O2SAT 98
[2024-04-09 04:00] VITALS: BP 149/81; PULSE 73; RESP 18; TEMP 97; O2SAT 99
[2024-04-09] MEDS: VANCOMYCIN 1,000 MG in DEXTROSE 5% 250 ML IV SCH (05:33)
[2024-04-09 06:58] LABS: BASOPHILS # (AUTO) 0.1 K/uL (0.00-0.22); BASOPHILS % (AUTO) 0.8 % (0.0-2.0); EOSINOPHILS # (AUTO) 0.2 K/uL (0-0.4); EOSINOPHILS % (AUTO) 2.1 % (0.0-4.0); HEMATOCRIT 31.1 % (36-52); LYMPHOCYTES # (AUTO) 1.7 K/uL (2.0-11.5); LYMPHOCYTES % (AUTO) 21.9 % (20.5-51.1); MEAN CORPUSCULAR HEMOGLOBIN 28 pg (27-31); MEAN CORPUSCULAR HGB CONC 35 g/dL (33-37); MEAN CORPUSCULAR VOLUME 77.6 fL (80-94); MONOCYTES # (AUTO) 0.5 K/uL (0.8-1.0); MONOCYTES % (AUTO) 6.3 % (1.7-9.3); NEUTROPHILS # (AUTO) 5.2 K/uL (1.8-7.7); NEUTROPHILS % (AUTO) 68.9 % (42.2-75.2); PLATELET COUNT (AUTO) 184 K/uL (140-450); RED CELL DISTRIBUTION WIDTH 13.5 % (11.6-13.7); WHITE BLOOD COUNT (AUTO) 7.6 K/uL (4.8-10.8)
[2024-04-09 07:20] LABS: ANION GAP 12.6 (8-16); CALCIUM 8.6 mg/dL (8.5-10.1); CARBON DIOXIDE 26.9 mmol/L (21-32); CREATININE 0.6 mg/dL (0.6-1.3); POTASSIUM 3.5 mmol/L (3.5-5.1)
[2024-04-09 08:00] VITALS: BP 154/84; PULSE 80; RESP 18; TEMP 97.8; O2SAT 99
[2024-04-09 16:00] VITALS: BP 116/72; PULSE 72; RESP 18; TEMP 98; O2SAT 97
[2024-04-09 20:00] VITALS: RESP 18; TEMP 97.3; O2SAT 96
[2024-04-09] MEDS: INSULIN LISPRO SLIDING SCALE 100 UNITS/ML VIAL SUBQ PRN (20:33)
[2024-04-10] VITALS: BP 134/74; PULSE 76; RESP 18; TEMP 97.3; O2SAT 98
[2024-04-10 06:38] LABS: BASOPHILS # (AUTO) 0.1 K/uL (0.00-0.22); BASOPHILS % (AUTO) 0.7 % (0.0-2.0); EOSINOPHILS # (AUTO) 0.1 K/uL (0-0.4); EOSINOPHILS % (AUTO) 1.5 % (0.0-4.0); HEMATOCRIT 32.8 % (36-52); HEMOGLOBIN 11.5 g/dL (12.0-18.0); LYMPHOCYTES # (AUTO) 1.7 K/uL (2.0-11.5); LYMPHOCYTES % (AUTO) 18.7 % (20.5-51.1); MEAN CORPUSCULAR HEMOGLOBIN 27 pg (27-31); MEAN CORPUSCULAR HGB CONC 35 g/dL (33-37); MEAN CORPUSCULAR VOLUME 77.7 fL (80-94); MONOCYTES # (AUTO) 0.6 K/uL (0.8-1.0); MONOCYTES % (AUTO) 6.9 % (1.7-9.3); NEUTROPHILS # (AUTO) 6.6 K/uL (1.8-7.7); NEUTROPHILS % (AUTO) 72.2 % (42.2-75.2); PLATELET COUNT (AUTO) 181 K/uL (140-450); RED BLOOD CELL COUNT(AUTO) 4.22 MIL/uL (4.20-6.10); RED CELL DISTRIBUTION WIDTH 13.6 % (11.6-13.7); WHITE BLOOD COUNT (AUTO) 9.1 K/uL (4.8-10.8)
[2024-04-10 07:04] LABS: ANION GAP 11.1 (8-16); CALCIUM 8.8 mg/dL (8.5-10.1); CARBON DIOXIDE 29.6 mmol/L (21-32); CREATININE 0.8 mg/dL (0.6-1.3); POTASSIUM 3.7 mmol/L (3.5-5.1)
[2024-04-10 08:00] VITALS: BP 156/83; PULSE 81; RESP 18; TEMP 97.9; O2SAT 98
[2024-04-10 16:00] VITALS: BP 134/82; PULSE 80; RESP 18; TEMP 98; O2SAT 98
[2024-04-10 20:00] VITALS: BP 152/82; PULSE 76; RESP 18; TEMP 97.4; O2SAT 98; O2SAT 99
[2024-04-11 07:16] LABS: ANION GAP 9.6 (8-16); CALCIUM 8.6 mg/dL (8.5-10.1); CARBON DIOXIDE 30.9 mmol/L (21-32); CREATININE 0.7 mg/dL (0.6-1.3); POTASSIUM 3.5 mmol/L (3.5-5.1)
[2024-04-11 07:32] LABS: BASOPHILS # (AUTO) 0.1 K/uL (0.00-0.22); BASOPHILS % (AUTO) 0.8 % (0.0-2.0); EOSINOPHILS # (AUTO) 0.2 K/uL (0-0.4); EOSINOPHILS % (AUTO) 2.6 % (0.0-4.0); HEMATOCRIT 30.3 % (36-52); HEMOGLOBIN 10.7 g/dL (12.0-18.0); LYMPHOCYTES # (AUTO) 1.8 K/uL (2.0-11.5); MEAN CORPUSCULAR HEMOGLOBIN 28 pg (27-31); MEAN CORPUSCULAR HGB CONC 35 g/dL (33-37); MEAN CORPUSCULAR VOLUME 77.6 fL (80-94); MONOCYTES # (AUTO) 0.6 K/uL (0.8-1.0); MONOCYTES % (AUTO) 6.9 % (1.7-9.3); NEUTROPHILS # (AUTO) 5.6 K/uL (1.8-7.7); NEUTROPHILS % (AUTO) 67.7 % (42.2-75.2); PLATELET COUNT (AUTO) 164 K/uL (140-450); RED BLOOD CELL COUNT(AUTO) 3.91 MIL/uL (4.20-6.10); RED CELL DISTRIBUTION WIDTH 13.7 % (11.6-13.7); WHITE BLOOD COUNT (AUTO) 8.3 K/uL (4.8-10.8)
[2024-04-11 08:00] VITALS: BP 149/81; PULSE 79; RESP 18; TEMP 98.1; O2SAT 99
[2024-04-11 16:00] VITALS: BP 143/80; PULSE 77; RESP 18; TEMP 97.9; O2SAT 99
[2024-04-11 20:00] VITALS: BP 139/79; PULSE 74; RESP 18; TEMP 97.2; O2SAT 100
[2024-04-11 22:29] VITALS: PULSE 74; RESP 18; O2SAT 100; O2SAT 99
[2024-04-11 23:32] VITALS: TEMP 97.2
[2024-04-12] MEDS: CYCLOBENZAPRINE 10 MG TAB PO PRN (02:06)
[2024-04-12] MEDS: CRUSHER, PILL MC ONE (02:08)
[2024-04-12 04:00] VITALS: BP 151/89; PULSE 84; RESP 17; TEMP 97.9; O2SAT 99
[2024-04-12 07:22] LABS: BASOPHILS % (AUTO) 0.6 % (0.0-2.0); EOSINOPHILS # (AUTO) 0.2 K/uL (0-0.4); EOSINOPHILS % (AUTO) 2.2 % (0.0-4.0); HEMATOCRIT 31.7 % (36-52); HEMOGLOBIN 11.1 g/dL (12.0-18.0); LYMPHOCYTES # (AUTO) 1.7 K/uL (2.0-11.5); LYMPHOCYTES % (AUTO) 21.7 % (20.5-51.1); MEAN CORPUSCULAR HEMOGLOBIN 27 pg (27-31); MEAN CORPUSCULAR HGB CONC 35 g/dL (33-37); MEAN CORPUSCULAR VOLUME 77.5 fL (80-94); MONOCYTES # (AUTO) 0.6 K/uL (0.8-1.0); MONOCYTES % (AUTO) 7.4 % (1.7-9.3); NEUTROPHILS # (AUTO) 5.3 K/uL (1.8-7.7); NEUTROPHILS % (AUTO) 68.1 % (42.2-75.2); PLATELET COUNT (AUTO) 172 K/uL (140-450); RED BLOOD CELL COUNT(AUTO) 4.09 MIL/uL (4.20-6.10); RED CELL DISTRIBUTION WIDTH 13.8 % (11.6-13.7); WHITE BLOOD COUNT (AUTO) 7.8 K/uL (4.8-10.8)
[2024-04-12 07:36] LABS: ANION GAP 10.5 (8-16); CALCIUM 8.8 mg/dL (8.5-10.1); CREATININE 0.8 mg/dL (0.6-1.3); POTASSIUM 3.5 mmol/L (3.5-5.1)
[2024-04-12 16:00] VITALS: BP 142/84; PULSE 80; TEMP 97.8
[2024-04-12 20:00] VITALS: BP 144/84; PULSE 70; PULSE 80; RESP 18; TEMP 97; O2SAT 99
[2024-04-13] MEDS: HYDRAGUARD CREAM TP ONE (01:00)
[2024-04-13 04:00] VITALS: BP 147/83; PULSE 78; RESP 19; TEMP 97.5; O2SAT 98
[2024-04-13 06:45] LABS: BASOPHILS # (AUTO) 0.1 K/uL (0.00-0.22); BASOPHILS % (AUTO) 0.8 % (0.0-2.0); EOSINOPHILS # (AUTO) 0.2 K/uL (0-0.4); EOSINOPHILS % (AUTO) 2.2 % (0.0-4.0); HEMATOCRIT 31.3 % (36-52); LYMPHOCYTES # (AUTO) 1.4 K/uL (2.0-11.5); LYMPHOCYTES % (AUTO) 19.8 % (20.5-51.1); MEAN CORPUSCULAR HEMOGLOBIN 27 pg (27-31); MEAN CORPUSCULAR HGB CONC 35 g/dL (33-37); MONOCYTES # (AUTO) 0.6 K/uL (0.8-1.0); MONOCYTES % (AUTO) 8.2 % (1.7-9.3); NEUTROPHILS # (AUTO) 4.9 K/uL (1.8-7.7); PLATELET COUNT (AUTO) 186 K/uL (140-450); RED BLOOD CELL COUNT(AUTO) 4.02 MIL/uL (4.20-6.10); RED CELL DISTRIBUTION WIDTH 13.9 % (11.6-13.7)
[2024-04-13 07:10] LABS: ALBUMIN 2.7 g/dL (3.4-5.0); CALCIUM 8.7 mg/dL (8.5-10.1); CARBON DIOXIDE 30.5 mmol/L (21-32); CREATININE 0.8 mg/dL (0.6-1.3); PHOSPHORUS 4.1 mg/dL (2.5-4.9); POTASSIUM 3.5 mmol/L (3.5-5.1); TOTAL BILIRUBIN 0.6 mg/dL (0.0-1.0); TOTAL PROTEIN, SERUM 6.7 g/dL (6.4-8.2)
[2024-04-13 08:00] VITALS: PULSE 78; RESP 18; TEMP 97.5; O2SAT 98
[2024-04-13 16:00] VITALS: BP 141/88; PULSE 82; RESP 18; TEMP 98.3; O2SAT 98
[2024-04-13 20:00] VITALS: BP 139/83; PULSE 74; RESP 18; RESP 19; TEMP 97.1; O2SAT 98
[2024-04-13] MEDS: LOSARTAN 50 MG TAB PO SCH (21:58)
[2024-04-14] MEDS: HYDRAGUARD CREAM TP PRN (05:05)
[2024-04-14 06:33] LABS: BASOPHILS # (AUTO) 0.1 K/uL (0.00-0.22); BASOPHILS % (AUTO) 1.1 % (0.0-2.0); EOSINOPHILS # (AUTO) 0.2 K/uL (0-0.4); EOSINOPHILS % (AUTO) 2.5 % (0.0-4.0); HEMATOCRIT 31.2 % (36-52); HEMOGLOBIN 10.9 g/dL (12.0-18.0); LYMPHOCYTES # (AUTO) 1.2 K/uL (2.0-11.5); LYMPHOCYTES % (AUTO) 19.9 % (20.5-51.1); MEAN CORPUSCULAR HEMOGLOBIN 27 pg (27-31); MEAN CORPUSCULAR HGB CONC 35 g/dL (33-37); MEAN CORPUSCULAR VOLUME 77.7 fL (80-94); MONOCYTES # (AUTO) 0.6 K/uL (0.8-1.0); NEUTROPHILS % (AUTO) 66.5 % (42.2-75.2); PLATELET COUNT (AUTO) 174 K/uL (140-450); RED BLOOD CELL COUNT(AUTO) 4.01 MIL/uL (4.20-6.10); RED CELL DISTRIBUTION WIDTH 13.9 % (11.6-13.7); WHITE BLOOD COUNT (AUTO) 6.1 K/uL (4.8-10.8)
[2024-04-14 06:58] LABS: ALBUMIN 2.7 g/dL (3.4-5.0); ANION GAP 9.7 (8-16); CALCIUM 8.5 mg/dL (8.5-10.1); CREATININE 0.8 mg/dL (0.6-1.3); PHOSPHORUS 4.3 mg/dL (2.5-4.9); POTASSIUM 3.7 mmol/L (3.5-5.1); TOTAL BILIRUBIN 0.6 mg/dL (0.0-1.0); TOTAL PROTEIN, SERUM 6.7 g/dL (6.4-8.2)
[2024-04-14 08:00] VITALS: BP 156/83; PULSE 74; PULSE 85; RESP 18; TEMP 98.5; O2SAT 97; O2SAT 99
[2024-04-14] MEDS ORDERED: LOSA-270 PO (08:09)
[2024-04-14] MEDS: hydroCHLOROthiazide 25 MG TAB PO SCH (09:41)
[2024-04-14] MEDS ORDERED: HYDR25TA32 PO (11:40)
[2024-04-14 16:00] VITALS: BP 137/80; PULSE 73; RESP 18; TEMP 97.6; O2SAT 100
[2024-04-14 20:00] VITALS: BP 141/83; PULSE 84; PULSE 87; RESP 18; TEMP 97.5; O2SAT 97
[2024-04-15 06:48] LABS: BASOPHILS % (AUTO) 0.8 % (0.0-2.0); EOSINOPHILS # (AUTO) 0.1 K/uL (0-0.4); EOSINOPHILS % (AUTO) 1.8 % (0.0-4.0); HEMATOCRIT 30.1 % (36-52); HEMOGLOBIN 10.6 g/dL (12.0-18.0); LYMPHOCYTES # (AUTO) 1.4 K/uL (2.0-11.5); LYMPHOCYTES % (AUTO) 21.9 % (20.5-51.1); MEAN CORPUSCULAR HEMOGLOBIN 27 pg (27-31); MEAN CORPUSCULAR HGB CONC 35 g/dL (33-37); MONOCYTES # (AUTO) 0.5 K/uL (0.8-1.0); MONOCYTES % (AUTO) 8.3 % (1.7-9.3); NEUTROPHILS # (AUTO) 4.3 K/uL (1.8-7.7); NEUTROPHILS % (AUTO) 67.2 % (42.2-75.2); PLATELET COUNT (AUTO) 182 K/uL (140-450); RED BLOOD CELL COUNT(AUTO) 3.86 MIL/uL (4.20-6.10); RED CELL DISTRIBUTION WIDTH 13.9 % (11.6-13.7); WHITE BLOOD COUNT (AUTO) 6.5 K/uL (4.8-10.8)
[2024-04-15 07:06] LABS: ALBUMIN 2.8 g/dL (3.4-5.0); ANION GAP 8.2 (8-16); CALCIUM 8.8 mg/dL (8.5-10.1); CARBON DIOXIDE 32.2 mmol/L (21-32); CREATININE 0.9 mg/dL (0.6-1.3); MAGNESIUM 2.1 mg/dL (1.8-2.4); PHOSPHORUS 4.4 mg/dL (2.5-4.9); POTASSIUM 3.4 mmol/L (3.5-5.1); TOTAL BILIRUBIN 0.7 mg/dL (0.0-1.0)
[2024-04-15 08:00] VITALS: BP 157/86; PULSE 84; RESP 18; TEMP 98.3; O2SAT 97; O2SAT 98
[2024-04-15] MEDS: POTASSIUM CHLORIDE 20% 40 MEQ/15 ML UDC GT SCH (12:10)
[2024-04-15] MEDS: CRUSHER, PILL MC ONE (14:15)
[2024-04-15 16:00] VITALS: BP 136/78; PULSE 77; RESP 18; TEMP 97.8; O2SAT 99
== END 2024-04-15 19:50 | disposition home or self-care (01) | DRG 52 ==
LOC: MED 00:05 → MMU 05:10 → MTU 05:18
PROVIDERS: ADMIT Student in an Organized Health Care Education/Training Program; ATTEND Student in an Organized Health Care Education/Training Program
DX: G93.41 Metabolic encephalopathy (principal); E43 Unspecified severe protein-calorie malnutrition; I69.351 Hemiplegia and hemiparesis following cerebral infarction affecting right dominant side; D64.9 Anemia, unspecified; B95.62 Methicillin resistant Staphylococcus aureus infection as the cause of diseases classified elsewhere; E11.9 Type 2 diabetes mellitus without complications; N10 Acute pyelonephritis; E78.5 Hyperlipidemia, unspecified; Z20.822 Contact with and (suspected) exposure to COVID-19; G40.909 Epilepsy, unspecified, not intractable, without status epilepticus; I10 Essential (primary) hypertension; Z93.1 Gastrostomy status; Z68.29 Body mass index [BMI] 29.0-29.9, adult
CPT/HCPCS: 36415; 70450; 71045; 80048; 80053; 80076; 80202; 80305; 81001; 82140; 82272; 82550; 82948; 83605; 83735; 84100; 84443; 84484; 85025; 87040; 87081; 87086; 87186; 93005; 96365; 97110; 97112; 97163-GP; 97530; 99285; G0482; J0696; J1815; J2543; J3370; J3372; J7060; Q0092

== ENCOUNTER 2024-05-01 15:55 | Inpatient (IN) | payer OTHER, MEDICAID ==
[~2024-05-01] VITALS: Ht 167.6 cm; Wt 68.0 kg
[~2024-05-01 15:55] MED LIST changes: -AMOX-999 PO; -CIPR500T9 PO; -FLUC200T PO; +HYDR25TA32 PO; -LISI40TA8 PO; +LOSA-270 PO; +OLAN2.5T1 GT
[2024-05-01 15:59] VITALS: BP 118/75; PULSE 90; RESP 20; TEMP 98.5; O2SAT 97
[2024-05-01 16:19] LABS: BASOPHILS # (AUTO) 0.1 K/uL (0.00-0.22); BASOPHILS % (AUTO) 0.7 % (0.0-2.0); EOSINOPHILS # (AUTO) 0.1 K/uL (0-0.4); EOSINOPHILS % (AUTO) 1.6 % (0.0-4.0); HEMATOCRIT 31.1 % (36-52); HEMOGLOBIN 10.6 g/dL (12.0-18.0); LYMPHOCYTES # (AUTO) 2.4 K/uL (2.0-11.5); LYMPHOCYTES % (AUTO) 28.4 % (20.5-51.1); MEAN CORPUSCULAR HEMOGLOBIN 27 pg (27-31); MEAN CORPUSCULAR HGB CONC 34 g/dL (33-37); MEAN CORPUSCULAR VOLUME 78.1 fL (80-94); MONOCYTES # (AUTO) 0.7 K/uL (0.8-1.0); MONOCYTES % (AUTO) 8.4 % (1.7-9.3); NEUTROPHILS # (AUTO) 5.2 K/uL (1.8-7.7); NEUTROPHILS % (AUTO) 60.9 % (42.2-75.2); PLATELET COUNT (AUTO) 215 K/uL (140-450); RED BLOOD CELL COUNT(AUTO) 3.98 MIL/uL (4.20-6.10); RED CELL DISTRIBUTION WIDTH 13.4 % (11.6-13.7); WHITE BLOOD COUNT (AUTO) 8.5 K/uL (4.8-10.8)
[2024-05-01 16:23] LABS: BILIRUBIN,URINE NEGATIVE (NEGATIVE); BLOOD, URINE 1+ (NEGATIVE); COLOR,URINE YELLOW (YELLOW); LEUKOCYTE ESTERASE ,URINE 3+ (NEGATIVE); NITRITE, URINE NEGATIVE (NEGATIVE); PROTEIN,URINE 2+ (NEGATIVE); UGLUCOSE NEGATIVE (NEGATIVE)
[2024-05-01 16:37] LABS: APPEARANCE,URINE HAZY (CLEAR)
[2024-05-01 16:38] LABS: ANION GAP 10.2 (8-16); CALCIUM 8.9 mg/dL (8.5-10.1); CARBON DIOXIDE 31.6 mmol/L (21-32); CREATININE 0.9 mg/dL (0.6-1.3); POTASSIUM 3.8 mmol/L (3.5-5.1)
[2024-05-01 16:38] LABS: BACTERIA,URINE 4+ /HPF (None Seen); MUCUS,URINE 2+ /LPF (None Seen); SQUAMOUS EPITHELIAL CELL,UR 4-10 (MOD) /LPF (0-3 (FEW)); WBC,URINE >25 (MANY) /HPF (0-5); YEAST,URINE Moderate /HPF (None Seen)
[2024-05-01] MEDS ORDERED: cefTRIAXone 1,000 MG VIAL ONE (16:43)
[2024-05-01 16:47] LABS: LACTIC ACID 0.5 mmol/L (0.4-2.0)
[2024-05-01] MEDS: cefTRIAXone 1,000 MG in DEXT 5% MINI-BAG PLUS 50 ML IV ONE (16:48)
[2024-05-01] MEDS: NACL 0.9% 1,000 ML IV SCH (16:48)
[2024-05-01 16:53] LABS: FLU A ANTIGEN negative (NEGATIVE); FLU B ANTIGEN NEGATIVE (NEGATIVE)
[2024-05-01] MEDS ORDERED: MAG SULF 2000 MG/WATER PREMIX 50 ML IV PRN (17:50)
[2024-05-01] MEDS ORDERED: KCL 20 MEQ IN 100 mL PREMIX 200 ML IV PRN (17:50)
[2024-05-01] MEDS ORDERED: METOCLOPRAMIDE 10 MG/2 ML INJ VIAL IVP PRN (17:50)
[2024-05-01] MEDS ORDERED: DEXTROSE 50% 50 ML SYR IVP PRN (17:55)
[2024-05-01] MEDS ORDERED: INSULIN LISPRO SLIDING SCALE 100 UNITS/ML VIAL SUBQ PRN (17:55)
[2024-05-01 19:00] VITALS: RESP 20; O2SAT 100
[2024-05-01] MEDS: LOSARTAN 50 MG TAB PO SCH (21:46)
[2024-05-01] MEDS: OLANZapine 2.5 MG TAB GT SCH (21:46)
[2024-05-01] MEDS: levETIRAcetam 500 MG TAB PO SCH (21:47)
[2024-05-01] MEDS: BLOOD GLUCOSE MONITORING 1 DEV DEV FS SCH (21:56)
[2024-05-02] MEDS: DEXT 5% /NACL 0.9% 1,000 ML IV SCH (00:17)
[2024-05-02 04:00] VITALS: BP 122/73; PULSE 83; RESP 20; TEMP 97.1; O2SAT 83
[2024-05-02 06:54] LABS: BASOPHILS % (AUTO) 0.8 % (0.0-2.0); EOSINOPHILS # (AUTO) 0.1 K/uL (0-0.4); HEMOGLOBIN 10.3 g/dL (12.0-18.0); LYMPHOCYTES # (AUTO) 1.4 K/uL (2.0-11.5); MEAN CORPUSCULAR HEMOGLOBIN 27 pg (27-31); MEAN CORPUSCULAR HGB CONC 34 g/dL (33-37); MEAN CORPUSCULAR VOLUME 78.2 fL (80-94); MONOCYTES # (AUTO) 0.5 K/uL (0.8-1.0); MONOCYTES % (AUTO) 7.5 % (1.7-9.3); NEUTROPHILS # (AUTO) 3.9 K/uL (1.8-7.7); NEUTROPHILS % (AUTO) 65.7 % (42.2-75.2); PLATELET COUNT (AUTO) 179 K/uL (140-450); RED BLOOD CELL COUNT(AUTO) 3.84 MIL/uL (4.20-6.10); RED CELL DISTRIBUTION WIDTH 13.1 % (11.6-13.7)
[2024-05-02 07:24] LABS: ALBUMIN 2.7 g/dL (3.4-5.0); ANION GAP 10.8 (8-16); CALCIUM 8.6 mg/dL (8.5-10.1); CARBON DIOXIDE 27.8 mmol/L (21-32); CREATININE 0.8 mg/dL (0.6-1.3); POTASSIUM 3.6 mmol/L (3.5-5.1); TOTAL BILIRUBIN 0.5 mg/dL (0.0-1.0); TOTAL PROTEIN, SERUM 6.9 g/dL (6.4-8.2)
[2024-05-02 08:00] VITALS: BP 136/94; PULSE 78; RESP 18; TEMP 97.2; O2SAT 98
[2024-05-02] MEDS: FLUoxetine 20 MG CAP PO SCH (08:45)
[2024-05-02] MEDS: hydroCHLOROthiazide 25 MG TAB PO SCH (08:46)
[2024-05-02] MEDS: QUEtiapine FUMARATE 25 MG TAB PO SCH (08:46)
[2024-05-02] MEDS: GABAPENTIN 100 MG CAP PO SCH (08:46)
[2024-05-02] MEDS: AMANTADINE 100 MG CAP PO SCH (08:47)
[2024-05-02 16:00] VITALS: BP 140/81; PULSE 82; RESP 18; TEMP 97.5; O2SAT 98
[2024-05-02 21:36] VITALS: PULSE 82; RESP 18; O2SAT 98
[2024-05-03] MEDS: ZOLPIDEM 5 MG TAB PO PRN (02:53)
[2024-05-03 08:00] VITALS: BP 142/85; PULSE 95; RESP 18; TEMP 97.1; O2SAT 100; O2SAT 98
[2024-05-03 08:05] LABS: BASOPHILS % (AUTO) 0.6 % (0.0-2.0); EOSINOPHILS # (AUTO) 0.1 K/uL (0-0.4); EOSINOPHILS % (AUTO) 1.2 % (0.0-4.0); HEMATOCRIT 31.6 % (36-52); HEMOGLOBIN 10.8 g/dL (12.0-18.0); LYMPHOCYTES # (AUTO) 1.2 K/uL (2.0-11.5); LYMPHOCYTES % (AUTO) 18.1 % (20.5-51.1); MEAN CORPUSCULAR HEMOGLOBIN 26 pg (27-31); MEAN CORPUSCULAR HGB CONC 34 g/dL (33-37); MEAN CORPUSCULAR VOLUME 77.5 fL (80-94); MONOCYTES # (AUTO) 0.4 K/uL (0.8-1.0); MONOCYTES % (AUTO) 5.9 % (1.7-9.3); NEUTROPHILS # (AUTO) 4.8 K/uL (1.8-7.7); NEUTROPHILS % (AUTO) 74.2 % (42.2-75.2); PLATELET COUNT (AUTO) 185 K/uL (140-450); RED BLOOD CELL COUNT(AUTO) 4.09 MIL/uL (4.20-6.10); RED CELL DISTRIBUTION WIDTH 13.4 % (11.6-13.7); WHITE BLOOD COUNT (AUTO) 6.4 K/uL (4.8-10.8)
[2024-05-03 08:22] LABS: ALBUMIN 2.7 g/dL (3.4-5.0); ANION GAP 10.1 (8-16); CALCIUM 8.8 mg/dL (8.5-10.1); CARBON DIOXIDE 28.5 mmol/L (21-32); CREATININE 0.8 mg/dL (0.6-1.3); MAGNESIUM 1.9 mg/dL (1.8-2.4); PHOSPHORUS 4.3 mg/dL (2.5-4.9); POTASSIUM 3.6 mmol/L (3.5-5.1); TOTAL BILIRUBIN 0.4 mg/dL (0.0-1.0)
[2024-05-03] MEDS: HYDROcodone/APAP 5/325 MG 1 TAB TAB PO PRN (19:34)
[2024-05-03 20:00] VITALS: BP 147/85; PULSE 91; RESP 18; RESP 19; TEMP 98.2; O2SAT 100; O2SAT 98
[2024-05-03] MEDS: CHLORHEXADINE GLUC 2% CLOTH TP SCH (21:00)
[2024-05-03] MEDS: MUPIROCIN CA NASAL 2% 1GM TUBE NS SCH (22:28)
[2024-05-04 06:56] LABS: BASOPHILS # (AUTO) 0.1 K/uL (0.00-0.22); BASOPHILS % (AUTO) 1.2 % (0.0-2.0); EOSINOPHILS # (AUTO) 0.1 K/uL (0-0.4); EOSINOPHILS % (AUTO) 1.9 % (0.0-4.0); HEMATOCRIT 28.8 % (36-52); LYMPHOCYTES # (AUTO) 1.6 K/uL (2.0-11.5); LYMPHOCYTES % (AUTO) 28.6 % (20.5-51.1); MEAN CORPUSCULAR HEMOGLOBIN 27 pg (27-31); MEAN CORPUSCULAR HGB CONC 35 g/dL (33-37); MEAN CORPUSCULAR VOLUME 77.7 fL (80-94); MONOCYTES # (AUTO) 0.5 K/uL (0.8-1.0); MONOCYTES % (AUTO) 8.4 % (1.7-9.3); NEUTROPHILS # (AUTO) 3.3 K/uL (1.8-7.7); NEUTROPHILS % (AUTO) 59.9 % (42.2-75.2); PLATELET COUNT (AUTO) 178 K/uL (140-450); RED BLOOD CELL COUNT(AUTO) 3.71 MIL/uL (4.20-6.10); RED CELL DISTRIBUTION WIDTH 13.5 % (11.6-13.7); WHITE BLOOD COUNT (AUTO) 5.4 K/uL (4.8-10.8)
[2024-05-04 07:11] LABS: ALBUMIN 2.6 g/dL (3.4-5.0); ANION GAP 13.4 (8-16); CALCIUM 8.8 mg/dL (8.5-10.1); CARBON DIOXIDE 29.1 mmol/L (21-32); CREATININE 0.8 mg/dL (0.6-1.3); MAGNESIUM 1.8 mg/dL (1.8-2.4); PHOSPHORUS 4.4 mg/dL (2.5-4.9); POTASSIUM 3.5 mmol/L (3.5-5.1); TOTAL BILIRUBIN 0.3 mg/dL (0.0-1.0); TOTAL PROTEIN, SERUM 6.8 g/dL (6.4-8.2)
[2024-05-04 08:00] VITALS: BP 151/87; PULSE 95; RESP 18; TEMP 97.4; O2SAT 99
[2024-05-04] MEDS: ACETAMINOPHEN 325 MG TAB PO PRN (13:55)
[2024-05-04 20:00] VITALS: BP 144/87; PULSE 95; RESP 18; RESP 19; TEMP 97.5; O2SAT 99
[2024-05-05 06:48] LABS: BASOPHILS % (AUTO) 0.8 % (0.0-2.0); EOSINOPHILS # (AUTO) 0.1 K/uL (0-0.4); EOSINOPHILS % (AUTO) 1.1 % (0.0-4.0); HEMATOCRIT 30.8 % (36-52); HEMOGLOBIN 10.7 g/dL (12.0-18.0); LYMPHOCYTES # (AUTO) 1.7 K/uL (2.0-11.5); LYMPHOCYTES % (AUTO) 25.9 % (20.5-51.1); MEAN CORPUSCULAR HEMOGLOBIN 27 pg (27-31); MEAN CORPUSCULAR HGB CONC 35 g/dL (33-37); MEAN CORPUSCULAR VOLUME 77.4 fL (80-94); MONOCYTES # (AUTO) 0.5 K/uL (0.8-1.0); MONOCYTES % (AUTO) 7.4 % (1.7-9.3); NEUTROPHILS # (AUTO) 4.2 K/uL (1.8-7.7); NEUTROPHILS % (AUTO) 64.8 % (42.2-75.2); PLATELET COUNT (AUTO) 181 K/uL (140-450); RED BLOOD CELL COUNT(AUTO) 3.98 MIL/uL (4.20-6.10); RED CELL DISTRIBUTION WIDTH 13.2 % (11.6-13.7); WHITE BLOOD COUNT (AUTO) 6.5 K/uL (4.8-10.8)
[2024-05-05 07:07] LABS: ALBUMIN 2.7 g/dL (3.4-5.0); ANION GAP 10.1 (8-16); CALCIUM 8.9 mg/dL (8.5-10.1); CARBON DIOXIDE 30.5 mmol/L (21-32); CREATININE 0.8 mg/dL (0.6-1.3); PHOSPHORUS 4.6 mg/dL (2.5-4.9); POTASSIUM 3.6 mmol/L (3.5-5.1); TOTAL BILIRUBIN 0.3 mg/dL (0.0-1.0)
[2024-05-05] MEDS ORDERED: CIPR500T4 PO (10:28)
[2024-05-05 12:41] VITALS: BP 145/85; PULSE 78; RESP 19; TEMP 97.5
== END 2024-05-05 18:30 | disposition home or self-care (01) | DRG 52 ==
LOC: MED 15:55 → MMU 17:51 → MTU 18:09
PROVIDERS: ADMIT Student in an Organized Health Care Education/Training Program; ATTEND Student in an Organized Health Care Education/Training Program
DX: G93.41 Metabolic encephalopathy (principal); E43 Unspecified severe protein-calorie malnutrition; N39.0 Urinary tract infection, site not specified; Z20.822 Contact with and (suspected) exposure to COVID-19; E11.9 Type 2 diabetes mellitus without complications; I10 Essential (primary) hypertension; Z68.24 Body mass index [BMI] 24.0-24.9, adult; Z79.899 Other long term (current) drug therapy; Z79.4 Long term (current) use of insulin; Z74.01 Bed confinement status; Z86.73 Personal history of transient ischemic attack (TIA), and cerebral infarction without residual deficits
CPT/HCPCS: 36415; 71045; 80048; 80053; 81001; 82140; 82948; 83605; 83735; 83880; 84100; 84484; 85025; 87040; 87081; 87086; 87186; 93005; 96361; 96365; 99285; J0696; J1644; J1815; J7060; Q0092

== ENCOUNTER 2024-05-16 19:37 | Emergency (ER) | payer OTHER, MEDICAID ==
[~2024-05-16] VITALS: Ht 172.7 cm; Wt 72.6 kg
[~2024-05-16 19:37] MED LIST changes: +CIPR500T4 PO
[2024-05-16 19:42] VITALS: BP 115/82; PULSE 94; RESP 16; TEMP 98.5; O2SAT 96
[2024-05-16 20:53] LABS: APPEARANCE,URINE CLEAR (CLEAR); BILIRUBIN,URINE NEGATIVE (NEGATIVE); BLOOD, URINE TRACE-I (NEGATIVE); COLOR,URINE YELLOW (YELLOW); LEUKOCYTE ESTERASE ,URINE 1+ (NEGATIVE); NITRITE, URINE NEGATIVE (NEGATIVE); PROTEIN,URINE 1+ (NEGATIVE); UGLUCOSE NEGATIVE (NEGATIVE); UROBILINOGEN,URINE 0.2 EU/dL (0.2 - 1)
[2024-05-16 21:14] LABS: BACTERIA,URINE FEW /HPF (None Seen); RBC,URINE 0-5 /HPF (0-5); SQUAMOUS EPITHELIAL CELL,UR 0-3 (FEW) /LPF (0-3 (FEW)); YEAST,URINE Few /HPF (None Seen)
[2024-05-16] MEDS ORDERED: SULF-59 PO (21:28)
[2024-05-16 23:28] VITALS: BP 124/77; PULSE 88; RESP 16; TEMP 98.5; O2SAT 97
== END 2024-05-16 23:28 | disposition home or self-care (01) ==
LOC: MED 19:37
DX: T83.038A Leakage of other urinary catheter, initial encounter (principal); Z46.6 Encounter for fitting and adjustment of urinary device; N39.0 Urinary tract infection, site not specified; I10 Essential (primary) hypertension; E78.5 Hyperlipidemia, unspecified; Z86.69 Personal history of other diseases of the nervous system and sense organs; Z86.73 Personal history of transient ischemic attack (TIA), and cerebral infarction without residual deficits; Z79.4 Long term (current) use of insulin; Z79.899 Other long term (current) drug therapy
CPT/HCPCS: 51702; 81001; 87086; 99284

== ENCOUNTER 2024-05-26 00:45 | Emergency (ER) | payer MEDICAID, OTHER ==
[~2024-05-26] VITALS: Ht 175.3 cm; Wt 72.6 kg
[~2024-05-26 00:45] MED LIST changes: +SULF-59 PO
[2024-05-26 00:55] VITALS: BP 111/64; PULSE 82; RESP 16; TEMP 98.4; O2SAT 95
[2024-05-26] MEDS ORDERED: levETIRAcetam 100 MG/ML VIAL IV ONE (01:33)
[2024-05-26] MEDS: levETIRAcetam 1,000 MG in NACL 0.9% 100 ML IV ONE (01:44)
[2024-05-26 01:54] LABS: BASOPHILS # (AUTO) 0.1 K/uL (0.00-0.22); BASOPHILS % (AUTO) 0.7 % (0.0-2.0); EOSINOPHILS # (AUTO) 0.2 K/uL (0-0.4); HEMATOCRIT 32.8 % (36-52); HEMOGLOBIN 11.3 g/dL (12.0-18.0); LYMPHOCYTES # (AUTO) 1.3 K/uL (2.0-11.5); LYMPHOCYTES % (AUTO) 14.2 % (20.5-51.1); MEAN CORPUSCULAR HEMOGLOBIN 27 pg (27-31); MEAN CORPUSCULAR HGB CONC 34 g/dL (33-37); MEAN CORPUSCULAR VOLUME 77.8 fL (80-94); MONOCYTES # (AUTO) 0.6 K/uL (0.8-1.0); MONOCYTES % (AUTO) 6.2 % (1.7-9.3); NEUTROPHILS # (AUTO) 7.1 K/uL (1.8-7.7); NEUTROPHILS % (AUTO) 76.9 % (42.2-75.2); PLATELET COUNT (AUTO) 207 K/uL (140-450); RED BLOOD CELL COUNT(AUTO) 4.22 MIL/uL (4.20-6.10); RED CELL DISTRIBUTION WIDTH 13.3 % (11.6-13.7); WHITE BLOOD COUNT (AUTO) 9.3 K/uL (4.8-10.8)
[2024-05-26 02:02] LABS: ANION GAP 11.2 (8-16); CALCIUM 8.7 mg/dL (8.5-10.1); CREATININE 1.1 mg/dL (0.6-1.3); POTASSIUM 4.2 mmol/L (3.5-5.1)
[2024-05-26 02:08] LABS: INR 0.93 (0.8-1.2); PARTIAL THROMBOPLASTIN TIME 28.6 secs (22-35.6); PROTHROMBIN TIME 9.8 secs (10.8-13.4)
[2024-05-26 02:12] LABS: ALANINE AMINOTRANSFERASE 27 U/L (12-78); ALBUMIN 2.9 g/dL (3.4-5.0); ALKALINE PHOSPHATASE 128 U/L (50-136); ASPARTATE AMINOTRANSFERASE 17 U/L (15-37); BILIRUBIN,DIRECT 0.1 mg/dL (0.0-0.3); CREATINE KINASE, TOTAL 42 U/L (39-308); TOTAL BILIRUBIN 0.4 mg/dL (0.0-1.0)
[2024-05-26 02:45] LABS: APPEARANCE,URINE CLEAR (CLEAR); BILIRUBIN,URINE NEGATIVE (NEGATIVE); BLOOD, URINE 1+ (NEGATIVE); COLOR,URINE YELLOW (YELLOW); LEUKOCYTE ESTERASE ,URINE NEGATIVE (NEGATIVE); NITRITE, URINE NEGATIVE (NEGATIVE); PH,URINE 5.5 (5.0-9.0); PROTEIN,URINE 2+ (NEGATIVE); UGLUCOSE NEGATIVE (NEGATIVE); UROBILINOGEN,URINE 0.2 EU/dL (0.2 - 1)
[2024-05-26 02:48] LABS: BACTERIA,URINE >30 (MANY) /HPF (None Seen); MUCUS,URINE 1+ /LPF (None Seen); SQUAMOUS EPITHELIAL CELL,UR 0-3 (FEW) /LPF (0-3 (FEW)); WBC,URINE 0-5 /HPF (0-5)
[2024-05-26 04:44] VITALS: BP 111/78; PULSE 77; RESP 17; TEMP 98; O2SAT 97
== END 2024-05-26 04:44 | disposition home or self-care (01) ==
LOC: MED 00:45
DX: G40.509 Epileptic seizures related to external causes, not intractable, without status epilepticus (principal); E11.9 Type 2 diabetes mellitus without complications; I10 Essential (primary) hypertension; E78.00 Pure hypercholesterolemia, unspecified; Z86.73 Personal history of transient ischemic attack (TIA), and cerebral infarction without residual deficits; Z79.899 Other long term (current) drug therapy; Z79.4 Long term (current) use of insulin
CPT/HCPCS: 36415; 71045; 80048; 80076; 81001; 82550; 83605; 84484; 85025; 85610; 85730; 87040; 93005; 96365; 99285; J1953; Q0092